=== PATIENT | female | born 1990 | race Caucasian/White ===

== ENCOUNTER 2021-09-14 13:07 | Observation (INO) ==
[2021-09-14 13:48] LABS: Basophils # (auto) 0.04 K/uL (0-0.2); Basophils % (auto) 0.5 %; Eosinophils # (auto) 0.24 K/uL (0-0.5); Eosinophils % (auto) 2.7 %; Hematocrit (blood only) 41.9 % (37-47); Immature Granulocytes # (auto) 0.02 K/uL (0.00-0.02); Immature Granulocytes % (auto) 0.2 %; Lymphocytes # (auto) 1.64 K/uL (1.2-3.4); Lymphocytes % (auto) 18.6 %; Mean Corpuscular Hemoglobin 29.7 pg (25-34); Mean Corpuscular Hgb Conc 33.4 g/dL (32-36); Mean Platelet Volume 10.5 fL (7.4-10.4); Monocytes # (auto) 0.59 K/uL (0.11-0.59); Monocytes % (auto) 6.7 %; Neutrophils # (auto) 6.31 K/uL (1.4-6.5); Neutrophils % (auto) 71.3 %; Platelet Count 242 K/uL (130-400); RDW Coefficient of Variation 12.7 % (11.5-14.5); RDW Standard Deviation 41.2 fL (36.4-46.3); Red Blood Count 4.71 M/uL (4.2-5.4); White Blood Count 8.84 K/uL (4.8-10.8)
[2021-09-14 14:07] LABS: Albumin Level 4.1 gm/dl (3.4-5.0); BUN Creatinine Ratio 12.8 (10-20); Calcium 9.4 mg/dl (8.5-10.1); Creatinine Clr Calc Pharmacy 96.1 ml/min; Est GFR (African American) 97.4 ml/min; Potassium 3.8 mmol/L (3.5-5.1)
[2021-09-14 14:10] LABS: Bilirubin,Total 0.6 mg/dl (0.2-1); Total Protein 8.1 gm/dl (6.4-8.2)
[2021-09-14 14:37] LABS: Appearance Urine Clear (Clear); Bilirubin Urine Negative (Negative); Blood Urine Negative (Negative); Color Urine Yellow; Glucose Urine UA Negative (Negative); Ketones Urine Negative (Negative); Leukocyte Esterase Urine Negative (Negative); Nitrite Urine Negative (Negative); Protein Urine Negative (Negative); Urobilinogen Urine Negative (Negative)
[2021-09-14] MEDS ORDERED: OPTIRAY 320 100ml IV ONE (14:39)
--- NOTE | 2021-09-14 14:40 | Emergency Department Note ---
Impression & Plan RLQ abdominal pain, Acute appendicitis ED Provider Note NAME: ASHLIE VILLALOBOS AGE: 31 SEX: F : 1990 ARRIVES VIA: Walk-In INFORMANT: [Patient] ED PROVIDER(S): [Boni Whitman MD] CHIEF COMPLAINT: Abdominal pain HISTORY OF PRESENT ILLNESS: The patient is a 31-year-old female presents to the ER with 3 days of right lower quadrant pain rated as an 8/10. The pain is constant, nothing makes it better or worse. She has had no cough, congestion, trauma, urinary complaint, vaginal discharge, fever, vomiting or diarrhea. The patient did have a D&C secondary to a miscarriage about a month ago. No complications with the procedure. It was done in [place]. REVIEW OF SYSTEMS: See HPI for pertinent positives and negatives. A total of ten systems were reviewed and were otherwise negative. PMHx/PSHx: See Below SOCIAL HISTORY: See Below. PHYSICAL EXAM: GENERAL: Patient is in no acute distress. HEENT: No acute trauma, normocephalic atraumatic, mucous membranes moist, no nasal congestion, no scleral icterus. NECK: No stridor, no adenopathy, no meningismus, trachea is midline. LUNGS: Clear to auscultation bilaterally, no wheeze, no rhonchi, breath sounds equal. HEART: Without murmurs gallops or rubs, regular rate and rhythm. ABDOMEN: Soft, moderately tender in the right lower quadrant, bowel sounds positive, no hernias, no peritonitis. EXTREMITIES: No cyanosis or edema, full range of motion of all the joints without pain or difficulty, no signs for acute trauma. NEUROLOGIC: Oriented x 3, no acute motor or sensory deficits, no focal weakness. SKIN: No rash, no jaundice, no diaphoresis. DIFFERENTIAL DIAGNOSIS: Appendicitis, ovarian cyst, ovarian torsion, ectopic , TOA, PID, diverticulitis, UTI, obstruction, mesenteric ischemia, aortic pathology, inflammatory bowel disease, renal colic, PUD, pancreatitis, biliary pathology, hernia, volvulus, constipation, as well as other pathologies. EMERGENCY DEPARTMENT COURSE/PROCEDURES: MEDICAL DECISION MAKING: There is no leukocytosis or concerning anemia. There is a normal platelet count. No significant electrolyte abnormality or kidney failure. No concerning liver enzyme elevation. No evidence for pancreatitis. Urinalysis does not show infection. testing is negative. Abdominal and pelvis CT suggests acute appendicitis. On exam, the patient was tender in the right lower quadrant, she was not toxic or febrile. I spoke to the patient about her findings, I spoke with case management. I have contacted general surgery. The patient appears to have acute appendicitis by work-up and exam. Surgery has been consulted. I suspect the patient will go to the OR for an appendectomy. Of note, the patient did not want anything for pain while she was waiting for the surgical team. Past Med/Surg History Medical History No significant medical problems Social History Smoking Status: Never smoker Preferred Language: Greek Feels Safe at Home: Yes Results & Data (ED) Vital Signs Vital Signs - 24 hr 09/14/21 13:16 Temperature 36.6 C Temperature Source Temporal Artery Scan Pulse Rate 70 Respiratory Rate 18 Respiratory Effort / Characteristics Non-Labored Spontaneous Respiratory Depth Normal Respiratory Pattern Regular Blood Pressure 122/82 Blood Pressure Mean 95 Blood Pressure Position Sitting Pulse Oximetry 99 Oxygen Delivery Method Room Air Sepsis Recent Fever Within 48 Hours No Sepsis New/Unexplained Change in Mental Status N/A Sepsis Action Taken by Nursing No Action Required Home Medications Current Medication List: was personally reviewed by me Laboratory Data Attestation: I reviewed the patient's lab results. Result diagrams: 09/14/21 13:35 09/14/21 13:35 Lab Results 09/14/21 09/14/21 09/14/21 Range/Units 13:35 13:35 14:26 WBC 8.84 (4.8-10.8) K/uL RBC 4.71 (4.2-5.4) M/uL Hgb 14.0 (12.0-16.0) g/dL Hct 41.9 (37-47) % MCV 89.0 (80-100) fL MCH 29.7 (25-34) pg MCHC 33.4 (32-36) g/dL RDW Std Deviation 41.2 (36.4-46.3) fL RDW Coeff of Jorge 12.7 (11.5-14.5) % Plt Count 242 (130-400) K/uL MPV 10.5 H (7.4-10.4) fL Immature Gran % (Auto) 0.2 % Neut % (Auto) 71.3 % Lymph % (Auto) 18.6 % [place] % (Auto) 6.7 % Eos % (Auto) 2.7 % Baso % (Auto) 0.5 % Neut # (Auto) 6.31 (1.4-6.5) K/uL Lymph # (Auto) 1.64 (1.2-3.4) K/uL [place] # (Auto) 0.59 (0.11-0.59) K/uL Eos # (Auto) 0.24 (0-0.5) K/uL Baso # (Auto) 0.04 (0-0.2) K/uL Immature Gran # (Auto) 0.02 (0.00-0.02) K/uL Sodium 139 (136-145) mmol/L Potassium 3.8 (3.5-5.1) mmol/L Chloride 106 (98-107) mmol/L Carbon Dioxide 26 (21-32) mmol/L Anion Gap 6.0 (3-11) BUN 12 (7-18) mg/dl Creatinine 0.90 (0.6-1.2) mg/dl Est Cr Clr Drug Dosing 96.1 ml/min Est GFR ( Amer) 97.4 ml/min Est GFR (Non-Af Amer) 84.0 ml/min BUN/Creatinine Ratio 12.8 (10-20) Glucose 90 (70-99) mg/dl Calcium 9.4 (8.5-10.1) mg/dl Total Bilirubin 0.6 (0.2-1) mg/dl AST 19 (15-37) U/L ALT 23 (12-78) U/L Alkaline Phosphatase 79 (45-117) U/L Total Protein 8.1 (6.4-8.2) gm/dl Albumin 4.1 (3.4-5.0) gm/dl Globulin 4.0 (2.5-4.0) gm/dl Albumin/Globulin Ratio 1.0 (0.9-2) Lipase 159 (73-393) U/L Urine Color Yellow Urine Appearance Clear (Clear) Urine pH 5.0 (4.5-7.5) Ur Specific [place] 1.010 (1.000-1.030) Urine Protein Negative (Negative) Urine Glucose (UA) Negative (Negative) Urine Ketones Negative (Negative) Urine Blood Negative (Negative) Urine Nitrite Negative (Negative) Urine Bilirubin Negative (Negative) Urine Urobilinogen Negative (Negative) Ur Leukocyte Esterase Negative (Negative) POC Ur Test (NEG) 09/14/21 Range/Units 14:26 WBC (4.8-10.8) K/uL RBC (4.2-5.4) M/uL Hgb (12.0-16.0) g/dL Hct (37-47) % MCV (80-100) fL MCH (25-34) pg MCHC (32-36) g/dL RDW Std Deviation (36.4-46.3) fL RDW Coeff of Jorge (11.5-14.5) % Plt Count (130-400) K/uL MPV (7.4-10.4) fL Immature Gran % (Auto) % Neut % (Auto) % Lymph % (Auto) % [place] % (Auto) % Eos % (Auto) % Baso % (Auto) % Neut # (Auto) (1.4-6.5) K/uL Lymph # (Auto) (1.2-3.4) K/uL [place] # (Auto) (0.11-0.59) K/uL Eos # (Auto) (0-0.5) K/uL Baso # (Auto) (0-0.2) K/uL Immature Gran # (Auto) (0.00-0.02) K/uL Sodium (136-145) mmol/L Potassium (3.5-5.1) mmol/L Chloride (98-107) mmol/L Carbon Dioxide (21-32) mmol/L Anion Gap (3-11) BUN (7-18) mg/dl Creatinine (0.6-1.2) mg/dl Est Cr Clr Drug Dosing ml/min Est GFR ( Amer) ml/min Est GFR (Non-Af Amer) ml/min BUN/Creatinine Ratio (10-20) Glucose (70-99) mg/dl Calcium (8.5-10.1) mg/dl Total Bilirubin (0.2-1) mg/dl AST (15-37) U/L ALT (12-78) U/L Alkaline Phosphatase (45-117) U/L Total Protein (6.4-8.2) gm/dl Albumin (3.4-5.0) gm/dl Globulin (2.5-4.0) gm/dl Albumin/Globulin Ratio (0.9-2) Lipase (73-393) U/L Urine Color Urine Appearance (Clear) Urine pH (4.5-7.5) Ur Specific [place] (1.000-1.030) Urine Protein (Negative) Urine Glucose (UA) (Negative) Urine Ketones (Negative) Urine Blood (Negative) Urine Nitrite (Negative) Urine Bilirubin (Negative) Urine Urobilinogen (Negative) Ur Leukocyte Esterase (Negative) POC Ur Test NEG (NEG) Administered Medications Discontinued Medications Ioversol (Optiray 320 100ml) 94 ml IV ONCE ONE Stop: 09/14/21 14:40 Last Admin: 09/14/21 14:39 Dose: 94 ml Documented by: [id number] Imaging Data Radiologist's Impression: Abdomen/Pelvis CT 09/14/21 14:22 CT SCAN OF THE ABDOMEN AND PELVIS WITH IV CONTRAST CLINICAL HISTORY: Right lower quadrant abdominal pain. COMPARISON STUDY: No priors. TECHNIQUE: Following the IV administration of 94 cc of Optiray 320, CT scan of the abdomen and pelvis is performed from the lung bases to the proximal femora. Images are reviewed in the axial, sagittal, and coronal planes. IV contrast was administered without complication. A dose lowering technique was utilized adhering to the principles of ALARA. CT DOSE: 415.20 mGy.cm FINDINGS: Lung bases: The heart is normal in size and without pericardial effusion. The lung bases are clear. Liver: The contrast-enhanced liver is normal in size, contour, and attenuation. There is no intrahepatic biliary ductal dilatation. The hepatic veins and portal veins are patent. Gallbladder: Unremarkable. Spleen: Normal in size and attenuation. Pancreas: Unremarkable. Adrenal glands: Unremarkable. Kidneys: The contrast enhanced kidneys are normal in size and without hydronephrosis. The kidneys enhance symmetrically. Abdominal vasculature: The abdominal aorta is normal in course and caliber. Bowel: There is no bowel obstruction. There is an inflammatory process identified in the right lower quadrant adjacent to the cecum. An abnormal appendix is likely seen on image #314 measuring 9 mm diameter. No organized fluid collection is seen suggest abscess. Peritoneum: There is no intraperitoneal free air or abdominal ascites. There is a fat-containing umbilical hernia. Lymphadenopathy: None. Pelvic viscera: The bladder wall appears circumferentially thickened there is mild pericystic infiltration. The uterus is normal as visualized. The right ovary appears inflamed with surrounding infiltration as detailed above. The left ovary is normal as visualized. Skeletal structures: No lytic or blastic lesions are seen. IMPRESSION: 1. There is an inflammatory process identified in the right lower quadrant as detailed above, likely representing acute appendicitis with associated oophoritis of the adjacent right ovary. Surgical consultation is advised. 2. No intraperitoneal free air is identified and no organized fluid collection is seen to indicate abscess. 3. The bladder wall appears circumferentially thickened. Correlate with clinical findings and urinalysis 4. Additional findings as above. ACT 112: Negative or not required by law. Electronically signed by: Boni Arcos M.D. 09/14/2021 3:13 PM Discharge Plan Visit Data Chief Complaint: Abdominal Pain Stated Complaint: RIGHT SIDED ABDOMINAL PAIN ED Provider: Boni Whitman Discharge Problem: RLQ abdominal pain, Acute appendicitis Patient Disposition: Admitted As Inpatient Condition: Good Forms Stand Alone Forms: My [facility] Referrals Referrals: PCP,NO [Primary Care Provider] -
--- NOTE | 2021-09-14 15:14 | CT Scan Report ---
CT SCAN OF THE ABDOMEN AND PELVIS WITH IV CONTRAST CLINICAL HISTORY: Right lower quadrant abdominal pain. COMPARISON STUDY: No priors. TECHNIQUE: Following the IV administration of 94 cc of Optiray 320, CT scan of the abdomen and pelvi s is performed from the lung bases to the proximal femora. Images are reviewed in the axial, sagittal , and coronal planes. IV contrast was administered without complication. A dose lowering technique wa s utilized adhering to the principles of ALARA. CT DOSE: 415.20 mGy.cm FINDINGS: Lung bases: The heart is normal in size and without pericardial effusion. The lung bases are clear. Liver: The contrast-enhanced liver is normal in size, contour, and attenuation. There is no intrahepa tic biliary ductal dilatation. The hepatic veins and portal veins are patent. Gallbladder: Unremarkable. Spleen: Normal in size and attenuation. Pancreas: Unremarkable. Adrenal glands: Unremarkable. Kidneys: The contrast enhanced kidneys are normal in size and without hydronephrosis. The kidneys enh ance symmetrically. Abdominal vasculature: The abdominal aorta is normal in course and caliber. Bowel: There is no bowel obstruction. There is an inflammatory process identified in the right lower quadrant adjacent to the cecum. An abnormal appendix is likely seen on image #314 measuring 9 mm diam eter. No organized fluid collection is seen suggest abscess. Peritoneum: There is no intraperitoneal free air or abdominal ascites. There is a fat-containing umbi lical hernia. Lymphadenopathy: None. Pelvic viscera: The bladder wall appears circumferentially thickened there is mild pericystic infiltr ation. The uterus is normal as visualized. The right ovary appears inflamed with surrounding infiltra tion as detailed above. The left ovary is normal as visualized. Skeletal structures: No lytic or blastic lesions are seen. IMPRESSION: 1. There is an inflammatory process identified in the right lower quadrant as detailed above, likely representing acute appendicitis with associated oophoritis of the adjacent right ovary. Surgical cons ultation is advised. 2. No intraperitoneal free air is identified and no organized fluid collection is seen to indicate ab scess. 3. The bladder wall appears circumferentially thickened. Correlate with clinical findings and urinaly sis 4. Additional findings as above. ACT 112: Negative or not required by law. Electronically signed by: Boni Arcos M.D. 09/14/2021 3:13 PM
--- NOTE | 2021-09-14 15:52 | History & Physical Report ---
Date of Service September 14, 2021 Assessment & Plan (1) Acute appendicitis: (2) RLQ abdominal pain: Plan: 31 year-old female with 3 day history of abdominal pain with associated low appetite. CT scan showing dilated appendix measuring 9 mm with associated inflammation in RLQ and inflammation of right ovary. No evidence of perforation or abscess. No leukocytosis. afebrile. Plan: Discussed CT scan findings with patient and exam consistent with acute appendicitis. Discussed laparoscopic appendectomy, risks, and expected recovery/restrictions. COVID preop test IV Zosyn Keep NPO Likely will keep overnight and go home tomorrow morning Dr. Nash has seen and examined patient, discussed procedure, risks, and recovery/restrictions and obtained informed consent. History of Present Illness Chief Complaint: Abdominal pain Primary Care Provider: NO PCP Ifrah is a 31 year-old female who presented to ED with 3 day history of abdominal pain. States pain started as cramping pain and generalized and then yesterday noticed more severe pain in the right lower abdomen. Currently rating pain 8/10. Movement makes pain worse. Denies of any fever, chills, nausea, vomiting, chest pain, shortness of breath, cough, changes in bowel habits, diarrhea, constipation, blood in stools, difficulty urinating, dysuria, abnormal vaginal bleeding. States she had a D&C about 1 month ago and history of prior D&C. History of wisdom teeth extraction 10 years ago. No abdominal surgeries. No blood thinning agents. No recent COVID infection or COVID symptoms. No close contacts or family members awaiting testing or with + COVID infection. She has not been vaccinated for COVID. Allergies Allergy/AdvReac Type Severity Reaction Status Date / Time No Known Allergies Allergy Verified 09/14/21 16:21 Home Medications Medication Instructions Recorded Confirmed Type pantoprazole 40 mg tablet,delayed mg PO 09/14/21 History release Past Med/Surg History Medical History (Updated 09/14/21 @ 16:00 by Ghazal Capps PA-C) GERD (gastroesophageal reflux disease) No significant medical problems Surgical History (Updated 09/14/21 @ 16:00 by Ghazal Capps PA-C) H/O dilation and curettage [place] teeth extracted Social History Smoking Status: Never smoker Preferred Language: Slovenian Feels Safe at Home: Yes Review of Systems Review of Systems: All systems reviewed & are unremarkable except as noted in HPI & below Physical Exam Constitutional: WD/WN, vitals as above no acute distress and not ill appearing Respiratory: normal respiratory effort, lungs clear to auscultation Gastrointestinal (Abdomen): Inspection/Auscultation: abdomen normal to inspection; abdomen not distended Percussion/Palpation: + abdomen tender (RLQ), + guarding (RLQ, voluntary) and abdomen soft; abdomen not rigid Skin: no rashes, warm and dry Psychiatric: A+Ox3, euthymic affect Results & Data Results & Data ([facility]) Vital Signs (Past 12 Hours) Vital Signs Temp Pulse Resp BP Pulse Ox 09/14/21 13:16 36.6 C 70 18 122/82 99 Laboratory Results 09/14/21 09/14/21 09/14/21 Range/Units 14:26 14:26 13:35 WBC (4.8-10.8) K/uL RBC (4.2-5.4) M/uL Hgb (12.0-16.0) g/dL Hct (37-47) % MCV (80-100) fL MCH (25-34) pg MCHC (32-36) g/dL RDW Std Deviation (36.4-46.3) fL RDW Coeff of Jorge (11.5-14.5) % Plt Count (130-400) K/uL MPV (7.4-10.4) fL Immature Gran % (Auto) % Neut % (Auto) % Lymph % (Auto) % [place] % (Auto) % Eos % (Auto) % Baso % (Auto) % Neut # (Auto) (1.4-6.5) K/uL Lymph # (Auto) (1.2-3.4) K/uL [place] # (Auto) (0.11-0.59) K/uL Eos # (Auto) (0-0.5) K/uL Baso # (Auto) (0-0.2) K/uL Immature Gran # (Auto) (0.00-0.02) K/uL Sodium 139 (136-145) mmol/L Potassium 3.8 (3.5-5.1) mmol/L Chloride 106 (98-107) mmol/L Carbon Dioxide 26 (21-32) mmol/L Anion Gap 6.0 (3-11) BUN 12 (7-18) mg/dl Creatinine 0.90 (0.6-1.2) mg/dl Est Cr Clr Drug Dosing 96.1 ml/min Est GFR ( Amer) 97.4 ml/min Est GFR (Non-Af Amer) 84.0 ml/min BUN/Creatinine Ratio 12.8 (10-20) Glucose 90 (70-99) mg/dl Calcium 9.4 (8.5-10.1) mg/dl Total Bilirubin 0.6 (0.2-1) mg/dl AST 19 (15-37) U/L ALT 23 (12-78) U/L Alkaline Phosphatase 79 (45-117) U/L Total Protein 8.1 (6.4-8.2) gm/dl Albumin 4.1 (3.4-5.0) gm/dl Globulin 4.0 (2.5-4.0) gm/dl Albumin/Globulin Ratio 1.0 (0.9-2) Lipase 159 (73-393) U/L Urine Color Yellow Urine Appearance Clear (Clear) Urine pH 5.0 (4.5-7.5) Ur Specific [place] 1.010 (1.000-1.030) Urine Protein Negative (Negative) Urine Glucose (UA) Negative (Negative) Urine Ketones Negative (Negative) Urine Blood Negative (Negative) Urine Nitrite Negative (Negative) Urine Bilirubin Negative (Negative) Urine Urobilinogen Negative (Negative) Ur Leukocyte Esterase Negative (Negative) POC Ur Test NEG (NEG) 09/14/21 Range/Units 13:35 WBC 8.84 (4.8-10.8) K/uL RBC 4.71 (4.2-5.4) M/uL Hgb 14.0 (12.0-16.0) g/dL Hct 41.9 (37-47) % MCV 89.0 (80-100) fL MCH 29.7 (25-34) pg MCHC 33.4 (32-36) g/dL RDW Std Deviation 41.2 (36.4-46.3) fL RDW Coeff of Jorge 12.7 (11.5-14.5) % Plt Count 242 (130-400) K/uL MPV 10.5 H (7.4-10.4) fL Immature Gran % (Auto) 0.2 % Neut % (Auto) 71.3 % Lymph % (Auto) 18.6 % [place] % (Auto) 6.7 % Eos % (Auto) 2.7 % Baso % (Auto) 0.5 % Neut # (Auto) 6.31 (1.4-6.5) K/uL Lymph # (Auto) 1.64 (1.2-3.4) K/uL [place] # (Auto) 0.59 (0.11-0.59) K/uL Eos # (Auto) 0.24 (0-0.5) K/uL Baso # (Auto) 0.04 (0-0.2) K/uL Immature Gran # (Auto) 0.02 (0.00-0.02) K/uL Sodium (136-145) mmol/L Potassium (3.5-5.1) mmol/L Chloride (98-107) mmol/L Carbon Dioxide (21-32) mmol/L Anion Gap (3-11) BUN (7-18) mg/dl Creatinine (0.6-1.2) mg/dl Est Cr Clr Drug Dosing ml/min Est GFR ( Amer) ml/min Est GFR (Non-Af Amer) ml/min BUN/Creatinine Ratio (10-20) Glucose (70-99) mg/dl Calcium (8.5-10.1) mg/dl Total Bilirubin (0.2-1) mg/dl AST (15-37) U/L ALT (12-78) U/L Alkaline Phosphatase (45-117) U/L Total Protein (6.4-8.2) gm/dl Albumin (3.4-5.0) gm/dl Globulin (2.5-4.0) gm/dl Albumin/Globulin Ratio (0.9-2) Lipase (73-393) U/L Urine Color Urine Appearance (Clear) Urine pH (4.5-7.5) Ur Specific [place] (1.000-1.030) Urine Protein (Negative) Urine Glucose (UA) (Negative) Urine Ketones (Negative) Urine Blood (Negative) Urine Nitrite (Negative) Urine Bilirubin (Negative) Urine Urobilinogen (Negative) Ur Leukocyte Esterase (Negative) POC Ur Test (NEG) Diagnostic Findings CT SCAN OF THE ABDOMEN AND PELVIS WITH IV CONTRAST CLINICAL HISTORY: Right lower quadrant abdominal pain. COMPARISON STUDY: No priors. TECHNIQUE: Following the IV administration of 94 cc of Optiray 320, CT scan of the abdomen and pelvis is performed from the lung bases to the proximal femora. Images are reviewed in the axial, sagittal, and coronal planes. IV contrast was administered without complication. A dose lowering technique was utilized adhering to the principles of ALARA. CT DOSE: 415.20 mGy.cm FINDINGS: Lung bases: The heart is normal in size and without pericardial effusion. The lung bases are clear. Liver: The contrast-enhanced liver is normal in size, contour, and attenuation. There is no intrahepatic biliary ductal dilatation. The hepatic veins and portal veins are patent. Gallbladder: Unremarkable. Spleen: Normal in size and attenuation. Pancreas: Unremarkable. Adrenal glands: Unremarkable. Kidneys: The contrast enhanced kidneys are normal in size and without hydronephrosis. The kidneys enhance symmetrically. Abdominal vasculature: The abdominal aorta is normal in course and caliber. Bowel: There is no bowel obstruction. There is an inflammatory process identified in the right lower quadrant adjacent to the cecum. An abnormal appendix is likely seen on image #314 measuring 9 mm diameter. No organized fluid collection is seen suggest abscess. Peritoneum: There is no intraperitoneal free air or abdominal ascites. There is a fat-containing umbilical hernia. Lymphadenopathy: None. Pelvic viscera: The bladder wall appears circumferentially thickened there is mild pericystic infiltration. The uterus is normal as visualized. The right ovary appears inflamed with surrounding infiltration as detailed above. The left ovary is normal as visualized. Skeletal structures: No lytic or blastic lesions are seen. IMPRESSION: 1. There is an inflammatory process identified in the right lower quadrant as detailed above, likely representing acute appendicitis with associated oophoritis of the adjacent right ovary. Surgical consultation is advised. 2. No intraperitoneal free air is identified and no organized fluid collection is seen to indicate abscess. 3. The bladder wall appears circumferentially thickened. Correlate with clinical findings and urinalysis 4. Additional findings as above. (1) Acute appendicitis Acute appendicitis type: with localized peritonitis Appendicitis abscess pre sence: without abscess Appendicitis gangrene presence: without gangrene Appendicitis perforation presence: without perforation Qualified Code(s): K35.30 - Acute appendicitis with localized peritonitis, without perforation or g angrene
[2021-09-14] MEDS ORDERED: ONDANSETRON INJ 2 MG/ML 2 ML VIAL IV PRN ×2 (16:05→20:31)
[2021-09-14] MEDS ORDERED: fentaNYL citrate 100 MCG/2 ML VIAL IV PRN (16:05)
[2021-09-14] MEDS ORDERED: ATROPINE SULFATE 0.1 MG/ML 10ML SYR IV PRN (16:05)
[2021-09-14] MEDS ORDERED: ePHEDrine sulfate 50 MG/ML AMP IV PRN (16:05)
[2021-09-14] MEDS ORDERED: PATIENT'S ALLERGY INFO NEEDS ENTERED SCH (16:15)
[2021-09-14] MEDS ORDERED: PIPERACILL/TAZOBAC CONSULT ACTIVE PRN (16:19)
[2021-09-14] MEDS ORDERED: PIPERACILLIN/TAZOBACTAM 3.375 GM in DEXTROSE 5% 100 ML/100 ML BAG IV STA (16:19)
[2021-09-14] MEDS ORDERED: LIDOCAINE 2% 2 ML VIAL/AMP(20MG/ML) INFIL ONE (16:20)
[2021-09-14] MEDS ORDERED: PROPOFOL IV EMULSION 10 MG/ML 20 ML VIAL IV ONE (16:20)
[2021-09-14] MEDS ORDERED: ONDANSETRON INJ 2 MG/ML 2 ML VIAL ONE ×2 (16:20→18:46)
[2021-09-14] MEDS ORDERED: ROCURONIUM BROMIDE 10 MG/ML 5 ML VIAL IV ONE (16:20)
[2021-09-14] MEDS ORDERED: MIDAZOLAM HCL 1 MG/ML 2ML VIAL ONE (16:22)
[2021-09-14] MEDS ORDERED: fentaNYL citrate 100 MCG/2 ML VIAL ONE (16:22)
--- NOTE | 2021-09-14 16:38 | Anesthesiology Consultation ---
Date of Service September 14, 2021 Assessment & Plan (1) Encounter for pre-operative examination: Chart Review Chart Review: data entry initiated History Surgery Operation Date: 09/14/21 08:20 Proposed Procedures p Laparoscopic Appendectomy - Elieser Nash MD Height/Weight Height: 5 ft 10 in Weight: 80.5 kg Allergies Allergy/AdvReac Type Severity Reaction Status Date / Time No Known Allergies Allergy Verified 09/14/21 16:21 Medications Home Medications Medication Instructions Recorded Confirmed Last Taken pantoprazole 40 mg tablet,delayed mg PO 09/14/21 Unknown release Past Medical History Medical History GERD (gastroesophageal reflux disease) No significant medical problems Past Surgical History Surgical History H/O dilation and curettage [place] teeth extracted Social History Smoking Status: Never smoker Physical Exam Vital Signs Last Vital Signs Temp 97.9 F 09/14/21 13:16 Pulse 70 09/14/21 13:16 Resp 18 09/14/21 13:16 BP 122/82 09/14/21 13:16 Pulse Ox 99 09/14/21 13:16 Testing Laboratory Results 09/14/21 13:35 09/14/21 13:35 Urine Color Yellow 09/14/21 14:26 Urine Appearance Clear (Clear) 09/14/21 14:26 Urine pH 5.0 (4.5-7.5) 09/14/21 14:26 Ur Specific [place] 1.010 (1.000-1.030) 09/14/21 14:26 Urine Protein Negative (Negative) 09/14/21 14:26 Urine Glucose (UA) Negative (Negative) 09/14/21 14:26 Urine Ketones Negative (Negative) 09/14/21 14:26 Urine Nitrite Negative (Negative) 09/14/21 14:26 Ur Leukocyte Esterase Negative (Negative) 09/14/21 14:26 09/14/21 14:26 POC Ur Test NEG
[2021-09-14] MEDS ORDERED: BUPIVACAINE 0.5 % 5 MG/1 ML MPF 30ML VIAL ONE (17:04)
[2021-09-14] MEDS ORDERED: EPINEPHrine INJ 1 MG/ML AMP ONE (17:39)
[2021-09-14] MEDS ORDERED: NEOSTIGMINE METHYLSULFATE 1 MG/ML 10ML VIAL ONE (18:34)
[2021-09-14] MEDS ORDERED: GLYCOPYRROLATE 0.2 MG/ML VIAL ONE (18:34)
[2021-09-14] MEDS ORDERED: KETOROLAC 30 MG/ML VIAL ONE (18:41)
[2021-09-14] MEDS ORDERED: DEXAMETHASONE SOD INJ 4 MG/ML VIAL ONE (18:45)
--- NOTE | 2021-09-14 18:54 | Operative Report ---
Post Operative Report Pre & Post Diagnosis Operation Date: 09/14/21 08:20 Pre-Op Diagnosis: Acute appendicitis Post-Op Diagnosis: Acute appendicitis I identified the patient and participated in the time-out.: Yes Procedure Operation Date: 09/14/21 08:20 Actual Procedures p Laparoscopic Appendectomy - Elieser Nash MD Surgeon Elieser Nash MD Retail General Manager None Estimated Blood Loss 5 Findings Consistent with Post-Op Diagnosis Acute appendicitis Specimens Appendix Anesthesia Type General Complications No immediate complications Indications Acute appendicitis Description of Procedure The patient was taken to the operating room, and placed supine on the operating table. A timeout was performed, perioperative antibiotics were administered, SCD boots were placed. After adequate anesthesia and analgesia was obtained, the abdomen was prepped and draped in the normal sterile fashion. A 1 cm incision was made in the supraumbilical region and carried down to the level of the fascia. A trach hook was used to grasp the fascia and elevated and a varies needle was used to enter the abdominal cavity. The abdomen was insufflated to a pressure of 15 mmHg, and a 5 mm trocar was placed in this location. A 5 mm 30 degree laparoscope was placed into the abdominal cavity, and the abdomen was surveyed. The patient was placed in Trendelenburg and slightly to the left. One 5 mm trocar was placed in the right upper quadrant, and one 12 mm trocar was placed in the left lower quadrant under direct visualization. The right colon was identified and traced down to the cecum. The appendix was identified and elevated anteriorly and medially. A window was created at the base of the appendix with a [place] dissector. The Endo GEORGE stapler was used to transect the appendix at its base through noninflamed tissue, and subsequently the mesoappendix. The appendix was placed in an Endo Catch bag, and removed via the left lower quadrant port site. Attention was turned to hemostasis, which was excellent. The abdomen was copiously irrigated and suctioned free, and again hemostasis was found to be excellent. All trochars removed under direct visualization. The abdomen was desufflated. The fascia in the 12 mm port site was closed with a 0 Vicryl suture. The skin was closed with a running 4-0 Monocryl subcuticular stitch. Dermabond was applied. The patient tolerated the procedure without complication, and was transferred in stable condition to the PACU. All instrument, needle, and sponge counts were correct at the end of the case. I attest to the content of the Intraoperative Record and any orders documented therein. Any exceptions are noted below.
--- NOTE | 2021-09-14 19:44 | Anesthesiology Progress Note ---
Date of Service September 14, 2021 Anesthesia Post Procedure Vital Signs Vital Signs: Temp Pulse Pulse Resp BP BP Pulse Ox 09/14/21 19:35 98.6 F 57 L 15 117/76 98 09/14/21 19:25 57 L 18 111/81 100 09/14/21 19:15 97.9 F 72 15 137/46 L 100 09/14/21 19:05 97.9 F 100 H 16 127/86 100 09/14/21 17:47 99.0 F 18 120/85 93 09/14/21 17:41 98.1 F 72 20 108/66 99 09/14/21 13:16 97.9 F 70 18 122/82 99 09/14/21 09:15 72 15 137/46 L 100 Transfer of Care Handoff Completed per policy Notes Mental Status: alert / awake / arousable and participated in evaluation Patient Amnestic to Procedure: Yes Nausea / Vomiting: adequately controlled Pain: adequately controlled Airway Patency, RR, SpO2: stable & adequate BP & HR: stable & adequate Hydration State: stable & adequate Anesthetic Complications: no major complications apparent and Pt Satisfied with anesthetic care
[2021-09-14] MEDS ORDERED: PROMETHAZINE HCL 12.5 MG in SODIUM CHLORIDE 0.9% 50 ML IV PRN (20:31)
[2021-09-14] MEDS ORDERED: MoRPHine SULFATE 2 MG/ML CARP IV PRN (20:31)
[2021-09-14] MEDS ORDERED: KETOROLAC 30 MG/ML VIAL IV PRN (20:31)
[2021-09-14] MEDS ORDERED: LACTATED RINGER'S 1,000 ML IV SCH (20:45)
[2021-09-14] MEDS ORDERED: ENOXAPARIN INJ 40 MG/0.4 ML SYR SQ SCH (21:00)
[2021-09-14] MEDS ORDERED: PIPERACILLIN/TAZOBACTAM 3.375 GM in DEXTROSE 5% 100 ML IV SCH (21:00)
[2021-09-14] MEDS: oxyCODONE/ACETAMINOPHEN 5mg/325mg TAB PO PRN (22:24)
[2021-09-15 06:25] VITALS: O2SAT 98
--- NOTE | 2021-09-15 09:16 | Discharge Summary ---
Date of Service September 15, 2021 Admission HPI Per Admitting Provider Ifrah is a 31 year-old female who presented to ED with 3 day history of abdominal pain. States pain started as cramping pain and generalized and then yesterday noticed more severe pain in the right lower abdomen. Currently rating pain 8/10. Movement makes pain worse. Denies of any fever, chills, nausea, vomiting, chest pain, shortness of breath, cough, changes in bowel habits, diarrhea, constipation, blood in stools, difficulty urinating, dysuria, abnormal vaginal bleeding. States she had a D&C about 1 month ago and history of prior D&C. History of wisdom teeth extraction 10 years ago. No abdominal surgeries. No blood thinning agents. No recent COVID infection or COVID symptoms. No close contacts or family members awaiting testing or with + COVID infection. She has not been vaccinated for COVID. Principal Diagnosis Acute appendicitis Discharge Exam Constitutional WD/WN, vitals as above no acute distress and not ill appearing Neck normal visual inspection Respiratory normal respiratory effort, lungs clear to auscultation normal respiratory effort Auscultation: lungs clear to auscultation bilaterally Cardiovascular Rate/Rhythm: regular rate and regular rhythm Gastrointestinal (Abdomen) Inspection/Auscultation: abdomen normal to inspection and + abdominal surgical incision (Clean dry and intact with Dermabond in place; no erythema); abdomen not distended Percussion/Palpation: + abdomen tender (Tender incisions) and abdomen soft; no guarding and abdomen not rigid Skin no rashes, warm and dry Psychiatric A+Ox3, euthymic affect Discharge Data Allergies Allergy/AdvReac Type Severity Reaction Status Date / Time No Known Allergies Allergy Verified 09/14/21 16:21 Consultations 09/14/21 15:24 Consult General Surgery Stat Procedures Performed Operation Date: 09/14/21 08:20 Actual Procedures p Laparoscopic Appendectomy(Not Applicable) - Elieser Nash MD Ordered Studies 09/14/21 14:22 CT abd pelvis IV con only Stat Hospital Course (1) Acute appendicitis: Patient was admitted through the emergency department and taken to the operating room for laparoscopic cholecystectomy, the details of which are dictated in a separate note. Postoperatively, patient was taken to the floor. Diet was advanced as tolerated. Pain was controlled with IV and oral pain medications. DVT prophylaxis with SCD boots and Lovenox. By the day of discharge, patient was tolerating regular diet, and was not requiring IV pain medications, and was discharged home in stable condition. Total Time Total Time Spent Total Time Spent (In Minutes): 30 minutes Discharge Plan Discharge Items Patient Disposition: Home - Self-Care Reason For Visit: ACUTE APPENDICITIS Discharge Diagnosis: Acute appendicitis Condition on Discharge: Good Activity: Per Instructions section Lifting: No more than 25 pounds Sexual Activity: Wait until after follow-up appointment Exercise/Sports: Wait until after follow-up appointment Driving/Machine Use: Resume 3 days after discharge Non-emergency contact: Surgeon Call non-emergency contact if: you have any medication questions, your symptoms worsen, your pain is not controlled, your pain is concerning for you, your temperature is above 101.5, your wound has increased redness and your wound has increased drainage Follow-up/Referrals: PCP,NO [Primary Care Provider] - Diet: Regular Addtl Attending Provider Instructions: Post-Surgical ~Discharge Instructions Activity Recommendations: - lifting limitation: (20 pounds for 2 weeks), - exercise/sex/sports limit: (nonstrenuous for 2 weeks), - driving or machine use limit: (none for 1 week), - Shower/bathe limit: (may shower beginning tomorrow) Diet: - Resume previous diet SPECIAL CARE INSTRUCTIONS: - May shower in 24 hours. Let water run over area and pat dry. - Leave Dermabond in place. - Call the surgeon's office with any questions or concerns - - (ex. temperature higher than 101 degrees F, excessive bleeding or pain). MEDICATIONS: - Resume previous medications unless instructed otherwise by your surgeon. - Ibuprofen 600 mg every 6 hours with food - Percocet 1 every 4 hours, as needed for pain FOLLOW UP VISIT: - If not already scheduled, please call the office to schedule a two week follow-up appointment. Office number Pending Studies at Discharge: No Stand-Alone Forms: My [employer], Smoking Cessation Medications and DC Order Prescriptions: New oxycodone-acetaminophen [Percocet] 5-325 mg tablet 1 tab PO Q6H PRN (Reason: pain) Qty: 10 RF: 0 Continued pantoprazole 40 mg tablet,delayed release (DR/EC) 40 mg PO QAM RF: 0 Discharge Orders: Discharge Order (Routine); Ordered 09/15/21 Ordered By: Elieser Nash Admission Data Admit Date/Time: 09/14/21 18:57 Attending Provider: Elieser Nash Admit Provider: Elieser Nash Primary Care Provider: PCP,NO Other Providers: Elieser Nash
[2021-09-15] MEDS: oxyCODONE/ACETAMINOPHEN 5mg/325mg TAB PO PRN (10:05)
[2021-09-15 10:09] VITALS: BP 107/71; PULSE 64; TEMP 97.7
== END 2021-09-15 12:42 | disposition home or self-care (01) ==
LOC: ED 13:07 → OR 17:41 → 3E 17:41